=== PATIENT | male | born 1995 | race Caucasian/White ===

== ENCOUNTER 2023-06-13 12:29 | Outpatient (CLI) | payer OTHER ==
--- NOTE | 2023-06-13 16:43 | XRAY Report ---
PROCEDURE: Foot 3+V RT INDICATIONS: CONTUSION TO R GREAT TOE TECHNIQUE: 3 views of the foot were acquired. COMPARISON: None. FINDINGS: Bones: No acute fractures or dislocations. No suspicious bony lesions. Soft tissues: No suspicious soft tissue calcification. IMPRESSION: No acute osseous abnormality. If there is clinical concern or persistent symptoms, additional imaging such as repeat radiographs or advanced imaging (e.g. CT, MRI) may be helpful for further evaluation. Reviewed by: Adithya Wright MD on 06/13/2023 4:42 PM PDT Approved by: Adithya Wright MD on 06/13/2023 4:42 PM PDT Station ID: [id number]
== END 2023-06-13 12:30 | disposition home or self-care (01) ==
LOC: DI 12:29
PROVIDERS: ATTEND Physician Assistant Medical
DX: S90.211A Contusion of right great toe with damage to nail, initial encounter (principal)